=== PATIENT | male | born 1940 | race Caucasian/White ===

== ENCOUNTER → 2016-08-17 | Outpatient (CLI) | payer MEDICARE, OTHER ==
[~2016-08-17] MED LIST: AML5T PO; ASPI-860 PO; BENA20TA2 PO; FISH1CAP15 PO; METF500T4 PO; SMV20T PO
[2016-08-17 07:59] LABS: MEAN CORPUSCULAR HEMOGLOBIN 29.5 PG (26.0-34.0); MEAN CORPUSCULAR HGB CONC 34.8 g/dL (31.0-37.0); MEAN CORPUSCULAR VOLUME 85 FL (80-100); PLATELET COUNT 301 10^3uL (150-450); WHITE BLOOD COUNT 9.53 10^3uL (4.0-11.0)
[2016-08-17 08:15] LABS: BAND NEUTROPHILS % 0 % (0-6); EOSINOPHILS % 16 % (0-4); LYMPHOCYTES # 2.1 #; MONOCYTES # 0.3 #; MONOCYTES % 3 % (3-11); RBC MORPH NORMAL (NORMAL); SEGMENTED NEUTROPHILS % 59 % (51-67); TOTAL CELLS COUNTED 100
[2016-08-17 08:29] LABS: ANION GAP 16.6 MEQ/L (3-15); CALCULATED IONIZED CALCIUM 4.2 mg/dL (3.8-4.6); TOTAL PROTEIN 6.9 g/dL (6.4-8.5)
== END ==
LOC: LAB 07:41
PROVIDERS: ATTEND Internal Medicine
DX: Z00.00 Encounter for general adult medical examination without abnormal findings (principal); I10 Essential (primary) hypertension; E11.9 Type 2 diabetes mellitus without complications; E78.4 Other hyperlipidemia; Z12.5 Encounter for screening for malignant neoplasm of prostate
CPT/HCPCS: 36415; 80053; 80061; 82043; 83036; 84443; 85025; G0103; 84153

== ENCOUNTER → 2016-12-15 | Outpatient (CLI) | payer MEDICARE, OTHER ==
--- NOTE | 2016-12-15 10:40 | Diagnostic Imaging Report ---
INDICATION: Chronic bronchitis. Comparison: 11/14/2015. Findings: Normal lung volume. Ill-defined nodular opacity in the left lung base on the frontal radiograph is new. There is peribronchial thickening bilaterally, which has mildly progressed. No pleural effusion or pneumothorax. Normal heart size. IMPRESSION: 1. New ill-defined airspace opacity in the left lung base likely represents a focus of pneumonia or bronchiolitis. Consider followup PA and lateral chest radiographs in 4 weeks after appropriate medical management to ensure resolution. Dictated by: Dictated on workstation # [id number]
== END ==
LOC: RAD 09:20
PROVIDERS: ATTEND Internal Medicine
DX: J44.1 Chronic obstructive pulmonary disease with (acute) exacerbation (principal)
CPT/HCPCS: 71020

== ENCOUNTER → 2016-12-16 | Outpatient (CLI) | payer MEDICARE, OTHER | LOC: RT 15:56 | PROVIDERS: ATTEND Internal Medicine | DX: J18.8 Other pneumonia, unspecified organism (principal); J12.89 Other viral pneumonia | CPT/HCPCS: 94640 ==

== ENCOUNTER 2016-12-19 15:51 | Outpatient (RCR) | payer MEDICARE, OTHER ==
[2016-12-15] MEDS: ALBUTEROL 0.083% NEB SOLUTION 2.5 MG/3 ML VIAL INH SCH ×2 (10:10→17:02)
[2016-12-18] MEDS: ALBUTEROL 0.083% NEB SOLUTION 2.5 MG/3 ML VIAL INH SCH ×2 (10:00→16:30)
[2016-12-19] MEDS: ALBUTEROL 0.083% NEB SOLUTION 2.5 MG/3 ML VIAL INH SCH ×2 (08:40→16:00)
[2016-12-21] MEDS: ALBUTEROL 0.083% NEB SOLUTION 2.5 MG/3 ML VIAL INH SCH ×2 (09:45→16:04)
[2016-12-22] MEDS: ALBUTEROL 0.083% NEB SOLUTION 2.5 MG/3 ML VIAL INH SCH ×3 (15:44→16:05)
[2016-12-23] MEDS: ALBUTEROL 0.083% NEB SOLUTION 2.5 MG/3 ML VIAL INH SCH ×4 (09:45→15:35)
[2016-12-24] MEDS: ALBUTEROL 0.083% NEB SOLUTION 2.5 MG/3 ML VIAL INH SCH ×2 (09:58→15:35)
[2016-12-25] MEDS: ALBUTEROL 0.083% NEB SOLUTION 2.5 MG/3 ML VIAL INH SCH ×2 (08:20→15:29)
== END 2017-01-04 17:35 | disposition home or self-care (01) ==
LOC: RT 15:51
PROVIDERS: ATTEND Internal Medicine
DX: J18.8 Other pneumonia, unspecified organism (principal); J12.89 Other viral pneumonia
CPT/HCPCS: 94640; J7613

== ENCOUNTER → 2016-12-22 | Outpatient (CLI) | payer MEDICARE, OTHER ==
--- NOTE | 2016-12-22 13:06 | Diagnostic Imaging Report ---
INDICATION: Community-acquired pneumonia, coughing, symptoms for one month. COMPARISON STUDY: Chest from 7 days ago. FINDINGS: Frontal and lateral views of the chest demonstrate the small infiltrate adjacent to the left heart border to nearly resolved. Heart size and vascularity are normal. No pleural effusions are present. There is flattening of the diaphragms consistent with COPD. IMPRESSION: 1. COPD. 2. Mild infiltrate in the left lower lung has nearly resolved. Dictated by: Dictated on workstation # [id number]
== END ==
LOC: RAD 11:04
PROVIDERS: ATTEND Internal Medicine
DX: J18.9 Pneumonia, unspecified organism (principal); J44.9 Chronic obstructive pulmonary disease, unspecified
CPT/HCPCS: 71020